=== PATIENT | male | born 2000 | race Caucasian/White ===

== ENCOUNTER 2020-08-16 17:21 | Emergency (ER) | payer BC, OTHER ==
[~2020-08-16] VITALS: Ht 182 cm; Wt 105.0 kg
--- NOTE | 2020-08-16 17:50 | ED Neurological Problem ---
General Chief Complaint: Neurological Problems Stated Complaint: SEIZURE Nursing Triage Note: PT HERE AFTER HAVING A SEIUZRE AT A [employer]AS STATION; PT ARRIVES AWAKE AND ALERT. EMS REPORTS HE WAS POSTICTAL ON SCENE AND VOMITED. Nursing Sepsis Screen: No Definite Risk Source: patient, EMS Exam Limitations: no limitations History of Present Illness Date Seen by Provider: Aug 16, 2020 Time Seen by Provider: 17:35 Initial Comments Patient is a 20-year-old male who presents to the emergency department today by EMS after a seizure. Witnesses reported that his seizure lasted approximately 10 minutes. Justice has a history of epilepsy and takes daily medications. Patient states he takes 2 antiseizure medications and takes them religiously every night at 8 PM. He denies any recent illnesses such as fevers, chills, congestion, cough, shortness of breath. No chest pain abdominal pain, no nausea vomiting or diarrhea. The patient however did have an episode of vomiting immediately post seizure. He denies any complaints of urinary urgency, frequency or dysuria. No rashes. No sick contacts. Patient states that the longest time he has ever been seizure-free has been about 3 months. Patient did have medication changes about 2 months ago. Reportedly by EMS the patient was postictal on scene. He did bite his tongue. All other review of systems reviewed and negative except as stated. Timing/Duration: 1 hour Associated Symptoms: seizures Allergies and Home Medications Allergies Coded Allergies: No Known Drug Allergies (Unverified , 08/16/20) Patient Home Medication List Home Medication List Reviewed: Yes Review of Systems Review of Systems Constitutional: see HPI Eyes: No Symptoms Reported Ears, Nose, Mouth, Throat: mouth pain (Anterior tip of the tongue injury) Respiratory: no symptoms reported Cardiovascular: no symptoms reported Gastrointestinal: no symptoms reported Genitourinary: no symptoms reported Musculoskeletal: no symptoms reported Skin: no symptoms reported Psychiatric/Neurological: Denies Anxiety, Denies Cognitive Dysfunction, Denies Headache, Denies Numbness, Denies Tingling; Tonic Clonic Seizures; Denies Unable to Move Lower Ext, Denies Unable to Move Upper Ext, Denies Weakness All Other Systems Reviewed Negative Unless Noted: Yes Past Ztdluar-Ynkygw-Rthqms Hx Patient Social History Alcohol Use: Denies Use Recreational Drug Use: No Smoking Status: Current Everyday Smoker Type Used: Cigarettes Recent Foreign Travel: No Contact w/Someone Who Travel: No Recent Infectious Disease Expo: No Recent Hopitalizations: No Seasonal Allergies Seasonal Allergies: No Past Medical History Neurological: Yes Seizure Disorder Physical Exam Vital Signs Vital Signs - First Documented 08/16/20 17:26 Temp 36.7 Pulse 116 Resp 18 B/P (MAP) 148/91 (110) Pulse Ox 96 O2 Delivery Room Air Capillary Refill : Less Than 3 Seconds Height, Weight, BMI Height: '" Weight: lbs. oz. 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, no motor/sensory deficits, alert, normal mood/affect, oriented x 3 Crainal Nerves: normal hearing, normal speech, PERRL Motor/Sensory: no motor deficit, no sensory deficit Skin: normal color, warm/dry, other (2 small abrasions noted on the dorsum of the left hand) Progress/Results/Core Measures Results/Orders Lab Results Laboratory Tests Test 08/16/20 17:35 Range/Units Sodium Level 138 135-145 MMOL/L Potassium Level 4.2 3.6-5.0 MMOL/L Chloride Level 103 98-107 MMOL/L Carbon Dioxide Level 22 21-32 MMOL/L Anion Gap 13 5-14 MMOL/L Blood Urea Nitrogen 14 7-18 MG/DL Creatinine 0.94 0.60-1.30 MG/DL Estimat Glomerular Filtration Rate > 60 BUN/Creatinine Ratio 15 Glucose Level 100 70-105 MG/DL Calcium Level 9.6 8.5-10.1 MG/DL Valproic Acid (Depakene) Level 10.4 L 50.0-100.0 UG/ML My Orders Orders - VINITA ARRIETA MD Ed Iv/Invasive Line Start (08/16/20 17:31) Basic Metabolic Panel (08/16/20 17:31) Valproic Acid (08/16/20 17:31) Vital Signs/I&O 08/16/20 17:26 Temp 36.7 Pulse 116 Resp 18 B/P (MAP) 148/91 (110) Pulse Ox 96 O2 Delivery Room Air Blood Pressure Mean: 110 Progress Progress Note : Time: 18:19 Progress Note Serum chemistry is within normal limits. Depakote level is still pending 1827 Depakote level low at 10, therapeutic range between 50 and 100. This may be secondary to checking a level late in the evening when the patient normally takes his Depakote around 8 PM. I did strongly encourage the patient to be compliant with his medication. He reassures me that he takes his medication as he supposed to. He had a telehealth visit with his seizure doctor 3 or 4 days ago. He is followed in [facility]. I recommended that he call them on Wednesday to let them know that he had another seizure and see if they need to further adjust his medications. The patient has had no further seizures here in the ER. He looks well. He is slightly hypertensive. He has no concerns at this time. He has no clinical or objective findings to warrant further testing and evaluation from the emergency department. He is comfortable with the plan of care. All questions are sought and answered. The patient is stable for discharge. Departure Impression Primary Impression: Personal history of seizure disorder Additional Impression: Seizure Disposition: 01 HOME, SELF-CARE Condition: Stable Departure-Patient Inst. Decision time for Depature: 18:30 Referrals: UNKNOWN (PCP/Family) Primary Care Physician Patient Instructions: Seizures, Adult (DC) Add. Discharge Instructions: Continue your routine seizure medications. Follow-up with your seizure doctor. Call Wednesday morning for a follow-up appointment. Return to the emergency room for any recurrent seizures or new emergent concerns. VINITA ARRIETA MD Aug 16, 2020 17:50
[2020-08-16 18:09] LABS: CHLORIDE 103 MMOL/L (98-107); POTASSIUM 4.2 MMOL/L (3.6-5.0); SODIUM 138 MMOL/L (135-145)
[2020-08-16 18:11] LABS: CALCIUM 9.6 MG/DL (8.5-10.1); GLUCOSE 100 MG/DL (70-105)
[2020-08-16 18:13] LABS: CARBON DIOXIDE 22 MMOL/L (21-32)
[2020-08-16 18:15] LABS: CREATININE SERUM 0.94 MG/DL (0.60-1.30); GFR ESTIMATED > 60
[2020-08-16 18:16] LABS: BUN/CREATININE RATIO 15
[2020-08-16 18:23] LABS: VALPROIC ACID 10.4 UG/ML (50.0-100.0)
[2020-08-16 18:46] VITALS: BP 127/98
== END 2020-08-16 18:44 | disposition home or self-care (01) ==
LOC: ER 17:22
DX: G40.909 Epilepsy, unspecified, not intractable, without status epilepticus (principal); F17.210 Nicotine dependence, cigarettes, uncomplicated
CPT/HCPCS: 36415; 80048; 80164; 99283